=== PATIENT | female | born 1990 | race Two or more races ===

== ENCOUNTER 2017-02-23 18:32 | Emergency (ER) | payer SELFPAY ==
[~2017-02-23] VITALS: Ht 160 cm; Wt 90.7 kg
[2017-02-23] MEDS ORDERED: MECLIZINE HCL 12.5 MG TABLET. PO ONE (20:00)
[2017-02-23 20:03] LABS: BASO # 0.1 x10^3/uL (0.0-0.2); BASO % 1 % (0-3); EOS % 1 % (0-3); HEMATOCRIT 36.2 % (36.0-47.0); HEMOGLOBIN 11.8 g/dL (12.0-15.5); LYMPH # 2.4 x10^3/uL (1.0-4.8); LYMPH % 21 % (24-48); MEAN CORPUSCULAR HEMOGLOBIN 31 pg (25-35); MEAN CORPUSCULAR HGB CONC 33 g/dL (31-37); MEAN CORPUSCULAR VOLUME 94 fL (79-100); MONO % 9 % (0-9); NEUT % 70 % (31-73); PLATELET COUNT 224 x10^3/uL (140-400); RED BLOOD COUNT 3.85 x10^6/uL (3.50-5.40); RED CELL DISTRIBUTION WIDTH 13.3 % (11.5-14.5); WHITE BLOOD COUNT 11.7 x10^3/uL (4.0-11.0)
[2017-02-23 20:15] LABS: BILIRUBIN,URINE NEGATIVE (NEG); GLUCOSE,URINE NEGATIVE (NEG); NITRITE,URINE NEGATIVE (NEG); PH,URINE 5.5; PROTEIN,URINE NEGATIVE (NEG-TRACE); UROBILINOGEN,URINE 0.2 mg/dL (0.2 mg/dL)
[2017-02-23 20:22] LABS: BACTERIA,URINE FEW /HPF (0-FEW); RBC,URINE 0 /HPF (0-2); SQUAMOUS EPITHELIAL CELL,UR FEW /LPF; WBC,URINE OCC /HPF (0-4)
[2017-02-23 20:31] LABS: CALCIUM 9.2 mg/dL (8.5-10.1); CREATININE 0.6 mg/dL (0.6-1.0); GFR 120.8; POTASSIUM 3.8 mmol/L (3.5-5.1)
--- NOTE | 2017-02-23 20:32 | PHYS DOC ---
Past Medical History Past Medical History: No Pertinent History Past Surgical History: No Surgical History Alcohol Use: None Drug Use: None Adult General Chief Complaint Chief Complaint: HEADACHE HPI HPI 26-year-old female who states she's had worsening headache for the last week and specifically states when she deviates her gaze to the right she develops significant pain and has blurred vision. She states she normally never has headaches. She denies any recent illnesses. Her last menstrual period was at the beginning of December and she states she does sometimes have irregular menses and that this is not abnormal for her. Patient denies any fever or chills. She denies any nausea or vomiting. She does state her symptoms are somewhat worse when she moves and walks. She states she has been able to eat and drink without difficulty. She states she has been his times with 3 viable full-term pregnancies and one miscarriage in the first trimester. Review of Systems Review of Systems Constitutional: Denies fever or chills [] Eyes: Denies change in visual acuity, redness, or eye pain [] HENT: Denies nasal congestion or sore throat [] Respiratory: Denies cough or shortness of breath [] Cardiovascular: No additional information not addressed in HPI [] GI: Denies abdominal pain, nausea, vomiting, bloody stools or diarrhea [] : Denies dysuria or hematuria [] Musculoskeletal: Denies back pain or joint pain [] Integument: Denies rash or skin lesions [] Neurologic: Has headache, denies focal weakness or sensory changes [] Endocrine: Denies polyuria or polydipsia [] Current Medications Current Medications Current Medications Medications (Trade) Dose Ordered Sig/[facility] Start Time Stop Time Status Last Admin Dose Admin Acetaminophen (Tylenol) 650 mg 1X ONCE 02/23/17 21:30 02/23/17 21:31 DC Acetaminophen 650 mg 650 mg 1X ONCE 02/23/17 20:45 02/23/17 20:46 DC 02/23/17 22:13 650 MG Meclizine HCl (Antivert) 50 mg 1X ONCE 02/23/17 20:00 02/23/17 20:01 DC 02/23/17 20:04 50 MG Sodium Chloride (Iv Sodium Chloride 0.9% 1000ml Bag) 1,000 ml @ 1,000 mls/hr 1X ONCE 02/23/17 21:15 02/23/17 22:14 DC 02/23/17 22:14 1,000 MLS/HR Allergies Allergies Allergies Coded Allergies Type Severity Reaction Last Updated Verified No Known Drug Allergies 02/23/17 No Physical Exam Physical Exam Constitutional: Well developed, well nourished, no acute distress, non-toxic appearance. [] HENT: Normocephalic, atraumatic, bilateral external ears normal, oropharynx moist, no oral exudates, nose normal. [] Eyes: PERRLA, conjunctiva normal, no discharge, right horizontal nystagmus. [] Neck: Normal range of motion, no tenderness, supple, no stridor. [] Cardiovascular:Heart rate regular rhythm, no murmur [] Lungs & Thorax: Bilateral breath sounds clear to auscultation [] Abdomen: Bowel sounds normal, soft, no tenderness, no masses, no pulsatile masses. [] Skin: Warm, dry, no erythema, no rash. [] Back: No tenderness, no CVA tenderness. [] Extremities: No tenderness, no cyanosis, no clubbing, ROM intact, no edema. [] Neurologic: Alert and oriented X 3, normal motor function, normal sensory function, no focal deficits noted. [] Psychologic: Affect normal, judgement normal, mood normal. [] Current Patient Data Vital Signs Vital Signs Date Time Temp Pulse Resp B/P Pulse Ox O2 Delivery O2 Flow Rate FiO2 02/23/17 18:40 98.3 89 16 125/67 100 Room Air 98.3 Lab Values Laboratory Tests Test 02/23/17 19:10 02/23/17 19:22 02/23/17 19:52 POC Urine HCG, Qualitative Hcg positive (Negative) White Blood Count 11.7x10^3/uL (4.0-11.0) H Red Blood Count 3.85x10^6/uL (3.50-5.40) Hemoglobin 11.8g/dL (12.0-15.5) L Hematocrit 36.2% (36.0-47.0) Mean Corpuscular Volume 94fL (79-100) Mean Corpuscular Hemoglobin 31pg (25-35) Mean Corpuscular Hemoglobin Concent 33g/dL (31-37) Red Cell Distribution Width 13.3% (11.5-14.5) Platelet Count 224x10^3/uL (140-400) Neutrophils (%) (Auto) 70% (31-73) Lymphocytes (%) (Auto) 21% (24-48) L Monocytes (%) (Auto) 9% (0-9) Eosinophils (%) (Auto) 1% (0-3) Basophils (%) (Auto) 1% (0-3) Neutrophils # (Auto) 8.2x10^3uL (1.8-7.7) H Lymphocytes # (Auto) 2.4x10^3/uL (1.0-4.8) Monocytes # (Auto) 1.0x10^3/uL (0.0-1.1) Eosinophils # (Auto) 0.1x10^3/uL (0.0-0.7) Basophils # (Auto) 0.1x10^3/uL (0.0-0.2) Maternal Serum HCG Beta Subunit 77063bYN/mL (0-6) H Sodium Level 137mmol/L (136-145) Potassium Level 3.8mmol/L (3.5-5.1) Chloride Level 103mmol/L (98-107) Carbon Dioxide Level 24mmol/L (21-32) Anion Gap 10 (6-14) Blood Urea Nitrogen 9mg/dL (7-20) Creatinine 0.6mg/dL (0.6-1.0) Estimated GFR (Cockcroft-Gault) 120.8 Glucose Level 82mg/dL (70-99) Calcium Level 9.2mg/dL (8.5-10.1) Urine Collection Type Unknown Urine Color Yellow Urine Clarity Clear Urine pH 5.5 Urine Specific [place] <=1.005 Urine Protein Negativemg/dL (NEG-TRACE) Urine Glucose (UA) Negativemg/dL (NEG) Urine Ketones (Stick) Negativemg/dL (NEG) Urine Blood Negative (NEG) Urine Nitrite Negative (NEG) Urine Bilirubin Negative (NEG) Urine Urobilinogen Dipstick 0.2mg/dL (0.2 mg/dL) Urine Leukocyte Esterase Negative (NEG) Urine RBC 0/HPF (0-2) Urine WBC Occ/HPF (0-4) Urine Squamous Epithelial Cells Few/LPF Urine Bacteria Few/HPF (0-FEW) Laboratory Tests 02/23/17 19:22 Laboratory Tests 02/23/17 19:22 EKG EKG [] Radiology/Procedures Radiology/Procedures [] [facility] [address] [place] [address] IMAGING REPORT Signed PATIENT: EDI MALDONADO ACCOUNT: [id number] : 1990 LOCATION: ER AGE: 26 SEX: F EXAM STATUS: REG ER ORD. PHYSICIAN: BERNABE SIN DO REASON: MRV not MRA/RT SIDE HEADACHE, BLURRED VISION, DIZZY, X 1 WEEK, NO INJURY PROCEDURE: ANGIOGRAPHY BRAIN WO CONTRAST MR venogram Indication: RIGHT SIDED HEADACHES, BLURRED VISION, DIZZY, X 1 WEEK, PATIENT IS AND SIGNED RELEASE. Technique: Time of flight MR venogram was performed in both the sagittal and coronal planes. Maximum intensity pixel projections were obtained and presented in a rotating format. FINDINGS: There is no evidence of dural venous sinus thrombosis. The deep cerebral veins are within normal limits. No cortical vein thrombosis is identified. Incidentally noted is dominance of the transverse sinus. IMPRESSION: Unremarkable MR venogram of the head. No evidence of dural venous sinus thrombosis. Electronically signed by: Hosea Chavez (Feb 23, 2017 22:34:52) DICTATED and SIGNED BY: HOSEA CHAVEZ MD DATE: 02/23/172233 CC: BERNABE SIN DO; GORDO CASTILLO DO; UNKNOWN PCP NAME ~ Course & Med Decision Making Course & Med Decision Making Pertinent Labs and Imaging studies reviewed. (See chart for details) This 26-year-old female has a urine test that is positive. This was not known to the patient. Initially a CT of her head was ordered but this has been canceled. I discussed with the civil cad tech that I would like to image her brain to rule out any acute cause for her headache including cavernous venous thrombosis. Patient is given a dose of Tylenol and a fluid bolus. A MRV of the head will be administered to rule out any sinus thrombosis. Her care plan was discussed with Dr. Castillo, who agreed to follow-up the MRI result. If the MRI is normal, the patient will be discharged home to follow with her OB doctor for her developing . I assumed care of this patient at time of sign out from Dr. Sin. Patient is resting comfortably at this time, states she still having some residual right- sided head pain, denies any other complaints this time. She is agreeable with plan to receive the MRI as stated. She is also receiving IV fluids at this time. MRI of the brain obtained without issue. No evidence of concerning findings identified, no sinusitis thrombosis. I did discuss the signs with patient, who continues to rest comfortably with stable vital signs in the ED. She states that she still has minor head pain at this time, but is improved after receiving Tylenol IV fluids. Orthostatics were obtained, patient's blood pressures 1 teens over 50s to 60s, with heart rates in the 70s to 80s, without any dizziness, lightheadedness or other concerning findings. Patient was ambulatory in the ED, her trial progressed without issue, patient denies any complaints. After lengthy discussion, patient to be discharged home, to follow- up with neurology for additional evaluation if symptoms persist, return to the ED if any concerning symptoms develop, to follow-up with her [facility] for expected management, and with Dr. Noble of [facility] if she is unable to follow-up with her previous mesh man. Patient was given a prescription for vitamins, and also instructions on staying well-hydrated and dietary recommendations. Patient voiced understanding and agreement with plan as stated , discharged home in stable condition with plan as above. Dragon Disclaimer Dragon Disclaimer This electronic medical record was generated, in whole or in part, using a voice recognition dictation system. Departure Impression: Primary Impression: Head ache Additional Impression: Disposition: HOME, SELF-CARE Condition: IMPROVED Referrals: UNKNOWN PCP NAME (PCP) Scripts Vits W-Ca,Fe,Fa(<1MG) ( Vitamins)1 Each Tablet1 Each PO DAILY # 30 Prov:BERNABE SIN DO 02/23/17 Departure Departure Impression: Primary Impression: Head ache Additional Impression: Disposition: HOME, SELF-CARE Condition: IMPROVED Referrals: UNKNOWN PCP NAME (PCP) Scripts Vits W-Ca,Fe,Fa(<1MG) ( Vitamins)1 Each Tablet1 Each PO DAILY # 30 Prov:BERNABE SIN DO 02/23/17 Problem Qualifiers BERNABE SIN DO Feb 23, 2017 20:32 GORDO CASTILLO DO Feb 23, 2017 23:43
[2017-02-23] MEDS ORDERED: ACETAMINOPHEN 325 MG TABLET. PO ONE ×3 (20:45→21:30)
[2017-02-23] MEDS ORDERED: IV NORMAL SALINE 1000ML BAG 1,000 ML IV ONE (21:15)
[2017-02-23] MEDS ORDERED: PREN1TAB58 PO (21:18)
--- NOTE | 2017-02-23 22:36 | RAD ---
MR venogram Indication: RIGHT SIDED HEADACHES, BLURRED VISION, DIZZY, X 1 WEEK, PATIENT IS AND SIGNED RELEASE. Technique: Time of flight MR venogram was performed in both the sagittal and coronal planes. Maximum intensity pixel projections were obtained and presented in a rotating format. FINDINGS: There is no evidence of dural venous sinus thrombosis. The deep cerebral veins are within normal limits. No cortical vein thrombosis is identified. Incidentally noted is dominance of the transverse sinus. IMPRESSION: Unremarkable MR venogram of the head. No evidence of dural venous sinus thrombosis. Electronically signed by: Hosea Chavez (Feb 23, 2017 22:34:52)
[2017-02-23 23:00] VITALS: BP 117/64
== END 2017-02-23 23:57 | disposition home or self-care (01) ==
LOC: ER 18:32
DX: Z33.1 Pregnant state, incidental (principal); R51 Headache; R42 Dizziness and giddiness; H53.8 Other visual disturbances
CPT/HCPCS: 36415; 70544; 80048; 81001; 81025; 84702; 85027; 96360; 96361; 99285; J7030; J8597

== ENCOUNTER 2017-06-03 22:37 | Observation (INO) | payer SELFPAY ==
[~2017-06-03 22:37] MED LIST: PREN1TAB58 PO
== END 2017-06-03 23:00 ==
LOC: 3 SO LND 22:37
PROVIDERS: ADMIT Obstetrics & Gynecology; ATTEND Obstetrics & Gynecology
DX: O26.892 Other specified pregnancy related conditions, second trimester (principal); R10.9 Unspecified abdominal pain; R11.2 Nausea with vomiting, unspecified; Z3A.20 20 weeks gestation of pregnancy
CPT/HCPCS: G0378; G0379

== ENCOUNTER 2017-06-03 22:59 | Inpatient (IN) | payer SELFPAY ==
[~2017-06-03] VITALS: Ht 160 cm; Wt 93.4 kg
[2017-06-03 23:24] LABS: BASO % 0 % (0-3); EOS % 0 % (0-3); HEMATOCRIT 32.5 % (36.0-47.0); HEMOGLOBIN 10.9 g/dL (12.0-15.5); LYMPH # 1.3 x10^3/uL (1.0-4.8); LYMPH % 10 % (24-48); MEAN CORPUSCULAR HEMOGLOBIN 31 pg (25-35); MEAN CORPUSCULAR HGB CONC 33 g/dL (31-37); MEAN CORPUSCULAR VOLUME 93 fL (79-100); MONO % 6 % (0-9); NEUT % 84 % (31-73); PLATELET COUNT 187 x10^3/uL (140-400); RED BLOOD COUNT 3.51 x10^6/uL (3.50-5.40); RED CELL DISTRIBUTION WIDTH 13.1 % (11.5-14.5)
[2017-06-03] MEDS ORDERED: METOCLOPRAMIDE HCL 10 MG/2 ML VIAL. IV ONE (23:30)
[2017-06-03] MEDS: fentaNYL PF VIAL 100 MCG/2 ML VIAL IV PRN (23:30)
[2017-06-03] MEDS ORDERED: IV NORMAL SALINE 1000ML BAG 1,000 ML IV ONE (23:30)
[2017-06-04 00:08] LABS: CALCIUM 8.4 mg/dL (8.5-10.1); CREATININE 0.7 mg/dL (0.6-1.0); GFR 100.4; POTASSIUM 3.6 mmol/L (3.5-5.1)
[2017-06-04 00:14] LABS: ALBUMIN/GLOBULIN RATIO 0.7 (1.0-1.7); TOTAL BILIRUBIN 0.3 mg/dL (0.2-1.0); TOTAL PROTEIN 7.1 g/dL (6.4-8.2)
--- NOTE | 2017-06-04 00:41 | RAD ---
Ultrasound of the abdomen 06/03/2017 CLINICAL HISTORY: Left flank pain for one day. The patient is 20 weeks . TECHNIQUE: A real-time ultrasound examination of the abdomen was performed. Multiple images were obtained. FINDINGS: The gallbladder is well-distended. No gallstones are visualized. The gallbladder wall thickness is within normal limits. No pericholecystic fluid is seen. The common bile duct measures 3 mm in diameter which is within normal limits. The liver is normal in size measuring 16.5 cm in length. No focal abnormality of the liver is seen. The pancreas is not well-visualized due to overlying bowel gas. The spleen and right kidney are within normal limits. The left kidney is mildly enlarged. Mild left hydronephrosis is noted. The proximal left ureter is mildly dilated. An echogenic focus is seen within the proximal left ureter which is suspicious for a left ureteral calculus. This measures approximately 4 mm in size. The abdominal aorta tapers normally. Inferior vena cava is within normal limits. No free fluid is seen. IMPRESSION: Mild left hydronephrosis and proximal left hydroureter. A 4 mm echogenic focus is seen in the region of the proximal left ureter which is suspicious for a left ureteral calculus. Electronically signed by: Waylon Champagne MD (06/04/2017 12:37 AM) [facility]
[2017-06-04] MEDS: fentaNYL PF VIAL 100 MCG/2 ML VIAL IV PRN ×2 (00:43→01:26)
[2017-06-04 00:47] LABS: BILIRUBIN,URINE NEGATIVE (NEG); GLUCOSE,URINE NEGATIVE (NEG); NITRITE,URINE NEGATIVE (NEG); PH,URINE 7.5; PROTEIN,URINE NEGATIVE (NEG-TRACE)
[2017-06-04 00:53] LABS: BACTERIA,URINE FEW /HPF (0-FEW); RBC,URINE OCC /HPF (0-2); SQUAMOUS EPITHELIAL CELL,UR FEW /LPF; WBC,URINE OCC /HPF (0-4)
[2017-06-04] MEDS ORDERED: MORPHINE SULFATE 4 MG/ML DISP.SYRIN. IV PRN (01:15)
[2017-06-04] MEDS ORDERED: IV NORMAL SALINE 1000ML BAG 1,000 ML IV SCH (01:27)
[2017-06-04] MEDS ORDERED: ACETAMINOPHEN 325 MG TABLET. PO PRN (01:30)
[2017-06-04] MEDS ORDERED: fentaNYL PF VIAL 100 MCG/2 ML VIAL IV PRN (01:30)
[2017-06-04] MEDS ORDERED: ONDANSETRON PF 4 MG/2 ML VIAL. IV PRN (01:30)
[2017-06-04 02:00] VITALS: BP 115/64
[2017-06-04] MEDS: IV RINGERS,LACTATED 1000ML 1,000 ML IV SCH ×4 (02:09→22:25)
[2017-06-04] MEDS: ONDANSETRON PF 4 MG/2 ML VIAL. IV SCH ×3 (02:09→12:00)
--- NOTE | 2017-06-04 03:42 | PHYS DOC ---
Past Medical History Past Medical History: No Pertinent History Past Surgical History: No Surgical History Alcohol Use: None Drug Use: None Adult General Chief Complaint Chief Complaint: NAUSEA/VOMITING/DIARRHA HPI HPI Patient is a 27 year old female who presents with flank pain. The patient reports 2 day history of left flank pain radiating to left groin. She reports nausea & vomiting. She denies fevers/chills, diarrhea, dysuria, hematuria, vaginal bleeding, discharge. She reports constipation. She denies previous history of similar pain. She is 20 weeks , screened by OB with normal heart tones. She has been receiving care by Dr. Chapman at [facility]. Review of Systems Review of Systems Constitutional: Denies fever or chills Eyes: Denies change in visual acuity HENT: Denies nasal congestion or sore throat Respiratory: Denies cough or shortness of breath Cardiovascular: Denies chest pain or edema GI: Reports abdominal pain, nausea, vomiting, denies bloody stools or diarrhea : Denies dysuria or hematuria Musculoskeletal: Reports flank pain Integument: Denies rash or skin lesions Neurologic: Denies headache, focal weakness or sensory changes Current Medications Current Medications Current Medications Medications (Trade) Dose Ordered Sig/Jhonathan Start Time Stop Time Status Last Admin Dose Admin Fentanyl Citrate (Fentanyl 2ml Vial) 50 mcg PRN Q15MIN PRN 06/03/17 23:15 06/04/17 23:14 06/04/17 01:26 50 MCG Metoclopramide HCl (Reglan) 10 mg 1X ONCE 06/03/17 23:30 06/03/17 23:31 DC 06/03/17 23:29 10 MG Sodium Chloride 1,000 ml @ 1,000 mls/hr 1X ONCE 06/03/17 23:30 06/04/17 00:29 DC 06/03/17 23:21 1,000 MLS/HR Allergies Allergies Allergies Coded Allergies Type Severity Reaction Last Updated Verified No Known Drug Allergies 02/23/17 No Physical Exam Physical Exam Constitutional: obese, no acute distress, non-toxic appearance. HENT: Normocephalic, atraumatic, bilateral external ears normal, oropharynx moist, nose normal. Eyes: conjunctiva normal, no discharge. Neck: supple, no stridor. Cardiovascular: RRR, no murmurs, no edema. Lungs & Thorax: LCTAB, no wheezing, no respiratory distress. Abdomen: soft, nontender, nondistended. gravid uterus. no focal tenderness, no masses. Skin: Warm, dry, no erythema, no rash. Back: left CVA tenderness. Extremities: No tenderness, no edema. Neurologic: Alert and oriented X 3, no focal deficits noted. Psychologic: Affect normal, judgement normal, mood normal. Current Patient Data Vital Signs Vital Signs Date Time Temp Pulse Resp B/P (MAP) Pulse Ox O2 Delivery O2 Flow Rate FiO2 06/04/17 00:43 20 06/03/17 23:35 80 113/54 (73) 96 Room Air 06/03/17 23:03 97.9 97.9 Lab Values Laboratory Tests Test 06/03/17 23:10 06/04/17 00:23 White Blood Count 14.0 x10^3/uL (4.0-11.0) H Red Blood Count 3.51 x10^6/uL (3.50-5.40) Hemoglobin 10.9 g/dL (12.0-15.5) L Hematocrit 32.5 % (36.0-47.0) L Mean Corpuscular Volume 93 fL (79-100) Mean Corpuscular Hemoglobin 31 pg (25-35) Mean Corpuscular Hemoglobin Concent 33 g/dL (31-37) Red Cell Distribution Width 13.1 % (11.5-14.5) Platelet Count 187 x10^3/uL (140-400) Neutrophils (%) (Auto) 84 % (31-73) H Lymphocytes (%) (Auto) 10 % (24-48) L Monocytes (%) (Auto) 6 % (0-9) Eosinophils (%) (Auto) 0 % (0-3) Basophils (%) (Auto) 0 % (0-3) Neutrophils # (Auto) 11.8 x10^3uL (1.8-7.7) H Lymphocytes # (Auto) 1.3 x10^3/uL (1.0-4.8) Monocytes # (Auto) 0.9 x10^3/uL (0.0-1.1) Eosinophils # (Auto) 0.0 x10^3/uL (0.0-0.7) Basophils # (Auto) 0.0 x10^3/uL (0.0-0.2) Sodium Level 142 mmol/L (136-145) Potassium Level 3.6 mmol/L (3.5-5.1) Chloride Level 107 mmol/L (98-107) Carbon Dioxide Level 22 mmol/L (21-32) Anion Gap 13 (6-14) Blood Urea Nitrogen 6 mg/dL (7-20) L Creatinine 0.7 mg/dL (0.6-1.0) Estimated GFR (Cockcroft-Gault) 100.4 BUN/Creatinine Ratio 9 (6-20) Glucose Level 103 mg/dL (70-99) H Calcium Level 8.4 mg/dL (8.5-10.1) L Total Bilirubin 0.3 mg/dL (0.2-1.0) Aspartate Amino Transferase (AST) 21 U/L (15-37) Alanine Aminotransferase (ALT) 24 U/L (14-59) Alkaline Phosphatase 107 U/L (46-116) Total Protein 7.1 g/dL (6.4-8.2) Albumin 3.0 g/dL (3.4-5.0) L Albumin/Globulin Ratio 0.7 (1.0-1.7) L Lipase 138 U/L (73-393) Urine Collection Type Unknown Urine Color Yellow Urine Clarity Cloudy Urine pH 7.5 Urine Specific [place] 1.020 Urine Protein Negative mg/dL (NEG-TRACE) Urine Glucose (UA) Negative mg/dL (NEG) Urine Ketones (Stick) 15 mg/dL (NEG) Urine Blood Negative (NEG) Urine Nitrite Negative (NEG) Urine Bilirubin Negative (NEG) Urine Urobilinogen Dipstick 1.0 mg/dL (0.2 mg/dL) Urine Leukocyte Esterase Negative (NEG) Urine RBC Occ /HPF (0-2) Urine WBC Occ /HPF (0-4) Urine Squamous Epithelial Cells Few /LPF Urine Amorphous Sediment Present /HPF Urine Bacteria Few /HPF (0-FEW) Urine Mucus Slight /LPF Laboratory Tests 06/03/17 23:10 Laboratory Tests 06/03/17 23:10 EKG EKG [] Radiology/Procedures Radiology/Procedures PROCEDURE: ABDOMEN COMPLETE Ultrasound of the abdomen 06/03/2017 CLINICAL HISTORY: Left flank pain for one day. The patient is 20 weeks . TECHNIQUE: A real-time ultrasound examination of the abdomen was performed. Multiple images were obtained. FINDINGS: The gallbladder is well-distended. No gallstones are visualized. The gallbladder wall thickness is within normal limits. No pericholecystic fluid is seen. The common bile duct measures 3 mm in diameter which is within normal limits. The liver is normal in size measuring 16.5 cm in length. No focal abnormality of the liver is seen. The pancreas is not well-visualized due to overlying bowel gas. The spleen and right kidney are within normal limits. The left kidney is mildly enlarged. Mild left hydronephrosis is noted. The proximal left ureter is mildly dilated. An echogenic focus is seen within the proximal left ureter which is suspicious for a left ureteral calculus. This measures approximately 4 mm in size. The abdominal aorta tapers normally. Inferior vena cava is within normal limits. No free fluid is seen. IMPRESSION: Mild left hydronephrosis and proximal left hydroureter. A 4 mm echogenic focus is seen in the region of the proximal left ureter which is suspicious for a left ureteral calculus. Electronically signed by: Waylon Champagne MD (06/04/2017 12:37 AM) [facility] DICTATED and SIGNED BY: WAYLON CHAMPAGNE MD DATE: 06/04/17 0032 [] Course & Med Decision Making Course & Med Decision Making Pertinent Labs and Imaging studies reviewed. (See chart for details) The patient presents with flank pain. Obtained ultrasound which shows ureteral stone with hydronephrosis and hydroureter. White blood cell count is 14 but no infection on UA. Her pain improved but remained severe. She received IV fluids and antiemetics here. Recommended admission to the hospital for further evaluation and treatment. The patient agreed with plan of care. Discussed with Dr. Martinez who agreed to admit to the OB floor to inpatient status, urology consult to Dr. Gorman. The patient is being admitted in stable condition. [] Dragon Disclaimer Dragon Disclaimer This electronic medical record was generated, in whole or in part, using a voice recognition dictation system. Departure Departure Impression: Primary Impression: Ureteral colic Additional Impression: with hydronephrosis in second trimester Disposition: ADMITTED INPATIENT Condition: STABLE Problem Qualifiers MINERVA GILMAN MD Jun 04, 2017 03:42
[2017-06-04 05:29] VITALS: BP 88/44
[2017-06-04] MEDS: HYDROcodone/APAP 5/325MG 1 TAB TABLET PO PRN ×3 (07:48→21:19)
--- NOTE | 2017-06-04 08:56 | PDOC ---
PROGRESS NOTES Subjective Subjective Pt. with left flank pain Objective Objective Vital Signs Date Time Temp Pulse Resp B/P (MAP) Pulse Ox O2 Delivery O2 Flow Rate FiO2 06/04/17 05:29 98.2 88 18 88/44 (59) 97 Room Air 98.2 Intake and Output 06/04/17 07:00 Output Total 950 ml Balance -950 ml Output Urine Total 950 ml Physical Exam Physical Exam Pt. with probable 4 mm left ureteral stone Plan Plan of Care I discussed with the pt. the options, alternatives, benefits, risks and possible complications of medical expulsive therapy vs. surgical intervention with the pt. Pt. currently feeling better and would like to do medical expulsive therapy. Will proceed accordingly. Problems Medical Problems: (1) with hydronephrosis in second trimester Status: Acute (2) Ureteral colic Status: Acute Comment Review of Relevant I have reviewed the following items juan (where applicable) has been applied. Labs Laboratory Tests Test 06/03/17 23:10 06/04/17 00:23 White Blood Count 14.0 x10^3/uL (4.0-11.0) Red Blood Count 3.51 x10^6/uL (3.50-5.40) Hemoglobin 10.9 g/dL (12.0-15.5) Hematocrit 32.5 % (36.0-47.0) Mean Corpuscular Volume 93 fL (79-100) Mean Corpuscular Hemoglobin 31 pg (25-35) Mean Corpuscular Hemoglobin Concent 33 g/dL (31-37) Red Cell Distribution Width 13.1 % (11.5-14.5) Platelet Count 187 x10^3/uL (140-400) Neutrophils (%) (Auto) 84 % (31-73) Lymphocytes (%) (Auto) 10 % (24-48) Monocytes (%) (Auto) 6 % (0-9) Eosinophils (%) (Auto) 0 % (0-3) Basophils (%) (Auto) 0 % (0-3) Neutrophils # (Auto) 11.8 x10^3uL (1.8-7.7) Lymphocytes # (Auto) 1.3 x10^3/uL (1.0-4.8) Monocytes # (Auto) 0.9 x10^3/uL (0.0-1.1) Eosinophils # (Auto) 0.0 x10^3/uL (0.0-0.7) Basophils # (Auto) 0.0 x10^3/uL (0.0-0.2) Sodium Level 142 mmol/L (136-145) Potassium Level 3.6 mmol/L (3.5-5.1) Chloride Level 107 mmol/L (98-107) Carbon Dioxide Level 22 mmol/L (21-32) Anion Gap 13 (6-14) Blood Urea Nitrogen 6 mg/dL (7-20) Creatinine 0.7 mg/dL (0.6-1.0) Estimated GFR (Cockcroft-Gault) 100.4 BUN/Creatinine Ratio 9 (6-20) Glucose Level 103 mg/dL (70-99) Calcium Level 8.4 mg/dL (8.5-10.1) Total Bilirubin 0.3 mg/dL (0.2-1.0) Aspartate Amino Transf (AST/SGOT) 21 U/L (15-37) Alanine Aminotransferase (ALT/SGPT) 24 U/L (14-59) Alkaline Phosphatase 107 U/L (46-116) Total Protein 7.1 g/dL (6.4-8.2) Albumin 3.0 g/dL (3.4-5.0) Albumin/Globulin Ratio 0.7 (1.0-1.7) Lipase 138 U/L (73-393) Urine Collection Type Unknown Urine Color Yellow Urine Clarity Cloudy Urine pH 7.5 Urine Specific [place] 1.020 Urine Protein Negative mg/dL (NEG-TRACE) Urine Glucose (UA) Negative mg/dL (NEG) Urine Ketones (Stick) 15 mg/dL (NEG) Urine Blood Negative (NEG) Urine Nitrite Negative (NEG) Urine Bilirubin Negative (NEG) Urine Urobilinogen Dipstick 1.0 mg/dL (0.2 mg/dL) Urine Leukocyte Esterase Negative (NEG) Urine RBC Occ /HPF (0-2) Urine WBC Occ /HPF (0-4) Urine Squamous Epithelial Cells Few /LPF Urine Amorphous Sediment Present /HPF Urine Bacteria Few /HPF (0-FEW) Urine Mucus Slight /LPF Laboratory Tests Test 06/03/17 23:10 06/04/17 00:23 White Blood Count 14.0 x10^3/uL (4.0-11.0) Red Blood Count 3.51 x10^6/uL (3.50-5.40) Hemoglobin 10.9 g/dL (12.0-15.5) Hematocrit 32.5 % (36.0-47.0) Mean Corpuscular Volume 93 fL (79-100) Mean Corpuscular Hemoglobin 31 pg (25-35) Mean Corpuscular Hemoglobin Concent 33 g/dL (31-37) Red Cell Distribution Width 13.1 % (11.5-14.5) Platelet Count 187 x10^3/uL (140-400) Neutrophils (%) (Auto) 84 % (31-73) Lymphocytes (%) (Auto) 10 % (24-48) Monocytes (%) (Auto) 6 % (0-9) Eosinophils (%) (Auto) 0 % (0-3) Basophils (%) (Auto) 0 % (0-3) Neutrophils # (Auto) 11.8 x10^3uL (1.8-7.7) Lymphocytes # (Auto) 1.3 x10^3/uL (1.0-4.8) Monocytes # (Auto) 0.9 x10^3/uL (0.0-1.1) Eosinophils # (Auto) 0.0 x10^3/uL (0.0-0.7) Basophils # (Auto) 0.0 x10^3/uL (0.0-0.2) Sodium Level 142 mmol/L (136-145) Potassium Level 3.6 mmol/L (3.5-5.1) Chloride Level 107 mmol/L (98-107) Carbon Dioxide Level 22 mmol/L (21-32) Anion Gap 13 (6-14) Blood Urea Nitrogen 6 mg/dL (7-20) Creatinine 0.7 mg/dL (0.6-1.0) Estimated GFR (Cockcroft-Gault) 100.4 BUN/Creatinine Ratio 9 (6-20) Glucose Level 103 mg/dL (70-99) Calcium Level 8.4 mg/dL (8.5-10.1) Total Bilirubin 0.3 mg/dL (0.2-1.0) Aspartate Amino Transf (AST/SGOT) 21 U/L (15-37) Alanine Aminotransferase (ALT/SGPT) 24 U/L (14-59) Alkaline Phosphatase 107 U/L (46-116) Total Protein 7.1 g/dL (6.4-8.2) Albumin 3.0 g/dL (3.4-5.0) Albumin/Globulin Ratio 0.7 (1.0-1.7) Lipase 138 U/L (73-393) Urine Collection Type Unknown Urine Color Yellow Urine Clarity Cloudy Urine pH 7.5 Urine Specific [place] 1.020 Urine Protein Negative mg/dL (NEG-TRACE) Urine Glucose (UA) Negative mg/dL (NEG) Urine Ketones (Stick) 15 mg/dL (NEG) Urine Blood Negative (NEG) Urine Nitrite Negative (NEG) Urine Bilirubin Negative (NEG) Urine Urobilinogen Dipstick 1.0 mg/dL (0.2 mg/dL) Urine Leukocyte Esterase Negative (NEG) Urine RBC Occ /HPF (0-2) Urine WBC Occ /HPF (0-4) Urine Squamous Epithelial Cells Few /LPF Urine Amorphous Sediment Present /HPF Urine Bacteria Few /HPF (0-FEW) Urine Mucus Slight /LPF Medications Current Medications Sodium Chloride 1,000 ml @ 1,000 mls/hr 1X ONCE IV Last administered on 23:21; Start 06/03/17 at 23:30; Stop 06/04/17 at 00:29; Status DC Metoclopramide HCl (Reglan) 10 mg 1X ONCE IV Last administered on 06/03/17 23: 29; Start 06/03/17 at 23:30; Stop 06/03/17 at 23:31; Status DC Fentanyl Citrate (Fentanyl 2ml Vial) 50 mcg PRN Q15MIN PRN IV PAIN GREATER THAN 3/10 Last administered on 06/04/17 01:26; Start 06/03/17 at 23:15; Stop 06/04 at 23:14 Ringer's Solution 1,000 ml @ 175 mls/hr Q5H43M IV Last administered on 02:09; Start 06/04/17 at 01:15 Acetaminophen/ Hydrocodone Bitart (Lortab 5/325) 2 tab PRN Q6HRS PRN PO SEVERE PAIN Last administered on 06/04/17 07:48; Start 06/04/17 at 01:15 Ondansetron HCl (Zofran) 8 mg Q6HRS IV Last administered on 06/04/17 07:47; Start 06/04/17 at 01:15 Morphine Sulfate 5 mg PRN Q2HR PRN IV SEVERE PAIN Last administered on 02:08; Start 06/04/17 at 01:15 Ondansetron HCl (Zofran) 4 mg PRN Q8HRS PRN IV NAUSEA/VOMITING; Start 06/04/17 at 01:30; Stop 06/05/17 at 01:29; Status UNV Fentanyl Citrate (Fentanyl 2ml Vial) 50 mcg PRN Q1HR PRN IV PAIN; Start at 01:30; Stop 06/05/17 at 01:29; Status UNV Sodium Chloride 1,000 ml @ 125 mls/hr Q8H IV ; Start 06/04/17 at 01:27; Stop 06/05/17 at 01:26 Acetaminophen (Tylenol) 650 mg PRN Q4HRS PRN PO FEVER; Start 06/04/17 at 01:30; Stop 06/05/17 at 01:29 Active Scripts Active Vitamins ( Vits W-Ca,Fe,Fa(<1MG)) 1 Each Tablet 1 Each PO DAILY Vitals/I & O Vital Sign - Last 24 Hours 06/03/17 06/03/17 06/04/17 06/04/17 23:03 23:35 00:43 01:20 Temp 97.9 97.9 Pulse 86 80 90 Resp 20 20 20 20 B/P (MAP) 118/63 (81) 113/54 (73) 109/65 (80) Pulse Ox 98 96 99 O2 Delivery Room Air Room Air Room Air 06/04/17 06/04/17 06/04/17 02:00 02:08 05:29 Temp 98.2 98.2 98.2 98.2 Pulse 85 88 Resp 20 24 18 B/P (MAP) 115/64 (81) 88/44 (59) Pulse Ox 96 98 97 O2 Delivery Room Air Room Air Room Air Intake and Output 06/03/17 06/03/17 06/04/17 15:00 23:00 07:00 Output Total 950 ml Balance -950 ml ADOLFO WHELAN MD Jun 04, 2017 08:56
--- NOTE | 2017-06-04 09:09 | PDOC2 ---
UROLOGY CONSULT Date of Admission DATE: 06/04/17 TIME: 09:06 ROS ROS: RESPIRATORY: Shortness of breath denies. Cough denies. UROLOGY: Denies blood in urine. Denies difficulty urinating Current Medications Current Medications Sodium Chloride 1,000 ml @ 1,000 mls/hr 1X ONCE IV Last administered on 23:21; Start 06/03/17 at 23:30; Stop 06/04/17 at 00:29; Status DC Metoclopramide HCl (Reglan) 10 mg 1X ONCE IV Last administered on 06/03/17 23: 29; Start 06/03/17 at 23:30; Stop 06/03/17 at 23:31; Status DC Fentanyl Citrate (Fentanyl 2ml Vial) 50 mcg PRN Q15MIN PRN IV PAIN GREATER THAN 3/10 Last administered on 06/04/17 01:26; Start 06/03/17 at 23:15; Stop 06/04 at 23:14 Ringer's Solution 1,000 ml @ 175 mls/hr Q5H43M IV Last administered on 02:09; Start 06/04/17 at 01:15 Acetaminophen/ Hydrocodone Bitart (Lortab 5/325) 2 tab PRN Q6HRS PRN PO SEVERE PAIN Last administered on 06/04/17 07:48; Start 06/04/17 at 01:15 Ondansetron HCl (Zofran) 8 mg Q6HRS IV Last administered on 06/04/17 07:47; Start 06/04/17 at 01:15 Morphine Sulfate 5 mg PRN Q2HR PRN IV SEVERE PAIN Last administered on 02:08; Start 06/04/17 at 01:15 Ondansetron HCl (Zofran) 4 mg PRN Q8HRS PRN IV NAUSEA/VOMITING; Start 06/04/17 at 01:30; Stop 06/05/17 at 01:29; Status UNV Fentanyl Citrate (Fentanyl 2ml Vial) 50 mcg PRN Q1HR PRN IV PAIN; Start at 01:30; Stop 06/05/17 at 01:29; Status UNV Sodium Chloride 1,000 ml @ 125 mls/hr Q8H IV ; Start 06/04/17 at 01:27; Stop 06/05/17 at 01:26 Acetaminophen (Tylenol) 650 mg PRN Q4HRS PRN PO FEVER; Start 06/04/17 at 01:30; Stop 06/05/17 at 01:29 Ceftriaxone Sodium 1 gm/ Sodium Chloride 50 ml @ 100 mls/hr Q24H IV ; Start 06/04/17 at 09:00 Tamsulosin HCl (Flomax) 0.4 mg DAILY PO ; Start 06/04/17 at 09:00 Active Scripts Active Vitamins ( Vits W-Ca,Fe,Fa(<1MG)) 1 Each Tablet 1 Each PO DAILY Allergies: Coded Allergies: No Known Drug Allergies (Unverified , 02/23/17) Physical Examination PHYSICAL EXAMINATION: GENERAL: Gen. appearance: No acute distress. Mood/affect: Pleasant. HEENT: Head: Normocephalic, atraumatic. Airway Impairment: No. CHEST: Shape and expansion: Normal. Expansion: Normal. SKIN: General: Warm. Color: Good. GENITOURINARY:External genitalia - wnl. NEUROLOGICAL: Mental status: Alert and oriented 3. Language: Normal. VITALS Vital Signs Date Time Temp Pulse Resp B/P (MAP) Pulse Ox O2 Delivery O2 Flow Rate FiO2 06/04/17 05:29 98.2 88 18 88/44 (59) 97 Room Air 98.2 Labs Laboratory Tests Test 06/03/17 23:10 06/04/17 00:23 White Blood Count 14.0 x10^3/uL (4.0-11.0) Red Blood Count 3.51 x10^6/uL (3.50-5.40) Hemoglobin 10.9 g/dL (12.0-15.5) Hematocrit 32.5 % (36.0-47.0) Mean Corpuscular Volume 93 fL (79-100) Mean Corpuscular Hemoglobin 31 pg (25-35) Mean Corpuscular Hemoglobin Concent 33 g/dL (31-37) Red Cell Distribution Width 13.1 % (11.5-14.5) Platelet Count 187 x10^3/uL (140-400) Neutrophils (%) (Auto) 84 % (31-73) Lymphocytes (%) (Auto) 10 % (24-48) Monocytes (%) (Auto) 6 % (0-9) Eosinophils (%) (Auto) 0 % (0-3) Basophils (%) (Auto) 0 % (0-3) Neutrophils # (Auto) 11.8 x10^3uL (1.8-7.7) Lymphocytes # (Auto) 1.3 x10^3/uL (1.0-4.8) Monocytes # (Auto) 0.9 x10^3/uL (0.0-1.1) Eosinophils # (Auto) 0.0 x10^3/uL (0.0-0.7) Basophils # (Auto) 0.0 x10^3/uL (0.0-0.2) Sodium Level 142 mmol/L (136-145) Potassium Level 3.6 mmol/L (3.5-5.1) Chloride Level 107 mmol/L (98-107) Carbon Dioxide Level 22 mmol/L (21-32) Anion Gap 13 (6-14) Blood Urea Nitrogen 6 mg/dL (7-20) Creatinine 0.7 mg/dL (0.6-1.0) Estimated GFR (Cockcroft-Gault) 100.4 BUN/Creatinine Ratio 9 (6-20) Glucose Level 103 mg/dL (70-99) Calcium Level 8.4 mg/dL (8.5-10.1) Total Bilirubin 0.3 mg/dL (0.2-1.0) Aspartate Amino Transf (AST/SGOT) 21 U/L (15-37) Alanine Aminotransferase (ALT/SGPT) 24 U/L (14-59) Alkaline Phosphatase 107 U/L (46-116) Total Protein 7.1 g/dL (6.4-8.2) Albumin 3.0 g/dL (3.4-5.0) Albumin/Globulin Ratio 0.7 (1.0-1.7) Lipase 138 U/L (73-393) Urine Collection Type Unknown Urine Color Yellow Urine Clarity Cloudy Urine pH 7.5 Urine Specific [place] 1.020 Urine Protein Negative mg/dL (NEG-TRACE) Urine Glucose (UA) Negative mg/dL (NEG) Urine Ketones (Stick) 15 mg/dL (NEG) Urine Blood Negative (NEG) Urine Nitrite Negative (NEG) Urine Bilirubin Negative (NEG) Urine Urobilinogen Dipstick 1.0 mg/dL (0.2 mg/dL) Urine Leukocyte Esterase Negative (NEG) Urine RBC Occ /HPF (0-2) Urine WBC Occ /HPF (0-4) Urine Squamous Epithelial Cells Few /LPF Urine Amorphous Sediment Present /HPF Urine Bacteria Few /HPF (0-FEW) Urine Mucus Slight /LPF Laboratory Tests Test 06/03/17 23:10 06/04/17 00:23 White Blood Count 14.0 x10^3/uL (4.0-11.0) Red Blood Count 3.51 x10^6/uL (3.50-5.40) Hemoglobin 10.9 g/dL (12.0-15.5) Hematocrit 32.5 % (36.0-47.0) Mean Corpuscular Volume 93 fL (79-100) Mean Corpuscular Hemoglobin 31 pg (25-35) Mean Corpuscular Hemoglobin Concent 33 g/dL (31-37) Red Cell Distribution Width 13.1 % (11.5-14.5) Platelet Count 187 x10^3/uL (140-400) Neutrophils (%) (Auto) 84 % (31-73) Lymphocytes (%) (Auto) 10 % (24-48) Monocytes (%) (Auto) 6 % (0-9) Eosinophils (%) (Auto) 0 % (0-3) Basophils (%) (Auto) 0 % (0-3) Neutrophils # (Auto) 11.8 x10^3uL (1.8-7.7) Lymphocytes # (Auto) 1.3 x10^3/uL (1.0-4.8) Monocytes # (Auto) 0.9 x10^3/uL (0.0-1.1) Eosinophils # (Auto) 0.0 x10^3/uL (0.0-0.7) Basophils # (Auto) 0.0 x10^3/uL (0.0-0.2) Sodium Level 142 mmol/L (136-145) Potassium Level 3.6 mmol/L (3.5-5.1) Chloride Level 107 mmol/L (98-107) Carbon Dioxide Level 22 mmol/L (21-32) Anion Gap 13 (6-14) Blood Urea Nitrogen 6 mg/dL (7-20) Creatinine 0.7 mg/dL (0.6-1.0) Estimated GFR (Cockcroft-Gault) 100.4 BUN/Creatinine Ratio 9 (6-20) Glucose Level 103 mg/dL (70-99) Calcium Level 8.4 mg/dL (8.5-10.1) Total Bilirubin 0.3 mg/dL (0.2-1.0) Aspartate Amino Transf (AST/SGOT) 21 U/L (15-37) Alanine Aminotransferase (ALT/SGPT) 24 U/L (14-59) Alkaline Phosphatase 107 U/L (46-116) Total Protein 7.1 g/dL (6.4-8.2) Albumin 3.0 g/dL (3.4-5.0) Albumin/Globulin Ratio 0.7 (1.0-1.7) Lipase 138 U/L (73-393) Urine Collection Type Unknown Urine Color Yellow Urine Clarity Cloudy Urine pH 7.5 Urine Specific [place] 1.020 Urine Protein Negative mg/dL (NEG-TRACE) Urine Glucose (UA) Negative mg/dL (NEG) Urine Ketones (Stick) 15 mg/dL (NEG) Urine Blood Negative (NEG) Urine Nitrite Negative (NEG) Urine Bilirubin Negative (NEG) Urine Urobilinogen Dipstick 1.0 mg/dL (0.2 mg/dL) Urine Leukocyte Esterase Negative (NEG) Urine RBC Occ /HPF (0-2) Urine WBC Occ /HPF (0-4) Urine Squamous Epithelial Cells Few /LPF Urine Amorphous Sediment Present /HPF Urine Bacteria Few /HPF (0-FEW) Urine Mucus Slight /LPF Assessment/Plan The patient is a very pleasant 27-year-old female with 2 day history of left flank and abdominal pain. Patient is 20 weeks . Patient states that she went to the emergency room on 06/02/17 with the complaint of left flank and abdominal pain and according to the patient imaging was negative for stone. Patient with no prior history of kidney stones. Patient had an ultrasound when she came to the emergency room on 06/03/17 here at [facility] and there was shown to be some mild left hydronephrosis and probable left proximal ureteral stone measuring 4 mm. Patient currently feeling much better. Patient with no major medical problems. Patient with no prior surgical history. Patient is and is 20 weeks . Patient normally is just on multivitamins. Patient with no known drug allergies. On physical examination patient with some mild left- sided flank discomfort and no right-sided abdominal pain. Patient's creatinine is normal and white count was 14,000 on admission. Patient is afebrile. Patient' s urine just showed an occasional red cell and occasional white cells and a few bacteria but was nitrite negative. I talked with the patient concerning her findings and we discussed the options alternatives benefits risks and possible complications of medical expulsive therapy versus surgical intervention. Patient would like to try medical expulsive therapy and therefore we'll go ahead and place her on Flomax if okay with Dr. Martinez. We'll also obtain a urine culture and place the patient on Rocephin if okay with Dr. Martinez. We'll continue to follow. ADOLFO WHELAN MD Jun 04, 2017 09:09
[2017-06-04] MEDS: TAMSULOSIN 0.4 MG CAP.ER.24H. PO SCH (10:41)
[2017-06-04 11:15] VITALS: BP 99/59
[2017-06-04 12:20] VITALS: BP 109/63
--- NOTE | 2017-06-04 13:23 | PDOC1 ---
OB - History Hx of Present Care: Limited Care Ultrasounds: No ultrasounds Obstetrical Complications: None Medical Complications: Other (kidney stone) Past Family/Social History * Past Medical, Surgical, Family and Obstetric Histories reviewed from chart. Blood Type: Unknown Rubella: Unknown RPR/VDRL: Unknown GBS Status: Unknown HBsAG: Unknown OB - Chief Complaint & HPI Date of Admission: Date of Admission: Jun 04, 2017 at 00:52 Chief Complaint/History : 1 Para: 0 EGA: 20 Reason for admission: other (Kidney stone) Admission Nurse Assessment Rev: Yes Problems: OB - Admission Exam Physical Exam Vitals: VS - Last 72 Hours, by Label Date Time Temp Pulse Resp B/P (MAP) Pulse Ox O2 Delivery O2 Flow Rate FiO2 06/04/17 05:29 98.2 88 18 88/44 (59) 97 Room Air 98.2 06/04/17 02:08 24 98 Room Air 06/04/17 02:00 98.2 85 20 115/64 (81) 96 Room Air 98.2 06/04/17 01:20 90 20 109/65 (80) 99 Room Air 06/04/17 00:43 20 06/03/17 23:35 80 20 113/54 (73) 96 Room Air 06/03/17 23:03 97.9 86 20 118/63 (81) 98 Room Air 97.9 HEENT: Normal Heart: Regular Rate Lungs: Clear Abdomen: Gravid, Non tender, Soft Extremities: Edema Reflexes: Normal Cervical Dilatation: None Effacement: 0% Station: Ballotable Membranes: Intact Accelerations: Accelerations Present Decelerations: No decelerations Contractions on Admission: None Text A: 20 wks IUP Left nephrolithiasis P: admit for IV fluid hydration and pain management. Appreciate consult from Urology. IV abx as well. REGINO GROVES Jr, MD Jun 04, 2017 13:23
[2017-06-04 16:20] VITALS: BP 117/77
[2017-06-04 21:30] VITALS: BP 103/61
[2017-06-05] MEDS: IV RINGERS,LACTATED 1000ML 1,000 ML IV SCH (04:26)
[2017-06-05] MEDS: HYDROcodone/APAP 5/325MG 1 TAB TABLET PO PRN (04:27)
[2017-06-05 04:40] VITALS: BP 94/58
[2017-06-05 06:50] LABS: CALCIUM 8.1 mg/dL (8.5-10.1); CREATININE 0.4 mg/dL (0.6-1.0); GFR 191.5; POTASSIUM 3.6 mmol/L (3.5-5.1)
[2017-06-05 06:57] LABS: BASO % 1 % (0-3); EOS % 1 % (0-3); HEMATOCRIT 28.8 % (36.0-47.0); HEMOGLOBIN 9.7 g/dL (12.0-15.5); LYMPH # 2.1 x10^3/uL (1.0-4.8); LYMPH % 27 % (24-48); MEAN CORPUSCULAR HEMOGLOBIN 32 pg (25-35); MEAN CORPUSCULAR HGB CONC 34 g/dL (31-37); MEAN CORPUSCULAR VOLUME 94 fL (79-100); MONO % 9 % (0-9); NEUT % 63 % (31-73); PLATELET COUNT 163 x10^3/uL (140-400); RED BLOOD COUNT 3.07 x10^6/uL (3.50-5.40); RED CELL DISTRIBUTION WIDTH 12.9 % (11.5-14.5); WHITE BLOOD COUNT 7.9 x10^3/uL (4.0-11.0)
[2017-06-05] MEDS: ONDANSETRON PF 4 MG/2 ML VIAL. IV SCH ×2 (08:18)
--- NOTE | 2017-06-05 08:30 | PDOC ---
PROGRESS NOTES Subjective Subjective Pt. feeling better today Objective Objective Vital Signs Date Time Temp Pulse Resp B/P (MAP) Pulse Ox O2 Delivery O2 Flow Rate FiO2 06/05/17 04:40 97.7 77 20 94/58 (70) 98 Room Air 97.7 Intake and Output 06/05/17 07:00 Intake Total 2000 ml Output Total 2650 ml Balance -650 ml Intake IV Total 2000 ml Output Urine Total 2650 ml Physical Exam Physical Exam mild dull ache in left flank Cr.-0.4 WBC-7.9 afeb Plan Plan of Care Pt. would like to do medical expulsive therapy Home on flomax and keflex Follow up with [facility] in 1-2 weeks Problems Medical Problems: (1) with hydronephrosis in second trimester Status: Acute (2) Ureteral colic Status: Acute Comment Review of Relevant I have reviewed the following items juan (where applicable) has been applied. Labs Laboratory Tests Test 06/03/17 23:10 06/04/17 00:23 06/05/17 06:22 White Blood Count 14.0 x10^3/uL (4.0-11.0) 7.9 x10^3/uL (4.0-11.0) Red Blood Count 3.51 x10^6/uL (3.50-5.40) 3.07 x10^6/uL (3.50-5.40) Hemoglobin 10.9 g/dL (12.0-15.5) 9.7 g/dL (12.0-15.5) Hematocrit 32.5 % (36.0-47.0) 28.8 % (36.0-47.0) Mean Corpuscular Volume 93 fL (79-100) 94 fL (79-100) Mean Corpuscular Hemoglobin 31 pg (25-35) 32 pg (25-35) Mean Corpuscular Hemoglobin Concent 33 g/dL (31-37) 34 g/dL (31-37) Red Cell Distribution Width 13.1 % (11.5-14.5) 12.9 % (11.5-14.5) Platelet Count 187 x10^3/uL (140-400) 163 x10^3/uL (140-400) Neutrophils (%) (Auto) 84 % (31-73) 63 % (31-73) Lymphocytes (%) (Auto) 10 % (24-48) 27 % (24-48) Monocytes (%) (Auto) 6 % (0-9) 9 % (0-9) Eosinophils (%) (Auto) 0 % (0-3) 1 % (0-3) Basophils (%) (Auto) 0 % (0-3) 1 % (0-3) Neutrophils # (Auto) 11.8 x10^3uL (1.8-7.7) 5.0 x10^3uL (1.8-7.7) Lymphocytes # (Auto) 1.3 x10^3/uL (1.0-4.8) 2.1 x10^3/uL (1.0-4.8) Monocytes # (Auto) 0.9 x10^3/uL (0.0-1.1) 0.7 x10^3/uL (0.0-1.1) Eosinophils # (Auto) 0.0 x10^3/uL (0.0-0.7) 0.1 x10^3/uL (0.0-0.7) Basophils # (Auto) 0.0 x10^3/uL (0.0-0.2) 0.0 x10^3/uL (0.0-0.2) Sodium Level 142 mmol/L (136-145) 141 mmol/L (136-145) Potassium Level 3.6 mmol/L (3.5-5.1) 3.6 mmol/L (3.5-5.1) Chloride Level 107 mmol/L (98-107) 107 mmol/L (98-107) Carbon Dioxide Level 22 mmol/L (21-32) 24 mmol/L (21-32) Anion Gap 13 (6-14) 10 (6-14) Blood Urea Nitrogen 6 mg/dL (7-20) 2 mg/dL (7-20) Creatinine 0.7 mg/dL (0.6-1.0) 0.4 mg/dL (0.6-1.0) Estimated GFR (Cockcroft-Gault) 100.4 191.5 BUN/Creatinine Ratio 9 (6-20) Glucose Level 103 mg/dL (70-99) 89 mg/dL (70-99) Calcium Level 8.4 mg/dL (8.5-10.1) 8.1 mg/dL (8.5-10.1) Total Bilirubin 0.3 mg/dL (0.2-1.0) Aspartate Amino Transf (AST/SGOT) 21 U/L (15-37) Alanine Aminotransferase (ALT/SGPT) 24 U/L (14-59) Alkaline Phosphatase 107 U/L (46-116) Total Protein 7.1 g/dL (6.4-8.2) Albumin 3.0 g/dL (3.4-5.0) Albumin/Globulin Ratio 0.7 (1.0-1.7) Lipase 138 U/L (73-393) Urine Collection Type Unknown Urine Color Yellow Urine Clarity Cloudy Urine pH 7.5 Urine Specific [place] 1.020 Urine Protein Negative mg/dL (NEG-TRACE) Urine Glucose (UA) Negative mg/dL (NEG) Urine Ketones (Stick) 15 mg/dL (NEG) Urine Blood Negative (NEG) Urine Nitrite Negative (NEG) Urine Bilirubin Negative (NEG) Urine Urobilinogen Dipstick 1.0 mg/dL (0.2 mg/dL) Urine Leukocyte Esterase Negative (NEG) Urine RBC Occ /HPF (0-2) Urine WBC Occ /HPF (0-4) Urine Squamous Epithelial Cells Few /LPF Urine Amorphous Sediment Present /HPF Urine Bacteria Few /HPF (0-FEW) Urine Mucus Slight /LPF Laboratory Tests Test 06/05/17 06:22 White Blood Count 7.9 x10^3/uL (4.0-11.0) Red Blood Count 3.07 x10^6/uL (3.50-5.40) Hemoglobin 9.7 g/dL (12.0-15.5) Hematocrit 28.8 % (36.0-47.0) Mean Corpuscular Volume 94 fL (79-100) Mean Corpuscular Hemoglobin 32 pg (25-35) Mean Corpuscular Hemoglobin Concent 34 g/dL (31-37) Red Cell Distribution Width 12.9 % (11.5-14.5) Platelet Count 163 x10^3/uL (140-400) Neutrophils (%) (Auto) 63 % (31-73) Lymphocytes (%) (Auto) 27 % (24-48) Monocytes (%) (Auto) 9 % (0-9) Eosinophils (%) (Auto) 1 % (0-3) Basophils (%) (Auto) 1 % (0-3) Neutrophils # (Auto) 5.0 x10^3uL (1.8-7.7) Lymphocytes # (Auto) 2.1 x10^3/uL (1.0-4.8) Monocytes # (Auto) 0.7 x10^3/uL (0.0-1.1) Eosinophils # (Auto) 0.1 x10^3/uL (0.0-0.7) Basophils # (Auto) 0.0 x10^3/uL (0.0-0.2) Sodium Level 141 mmol/L (136-145) Potassium Level 3.6 mmol/L (3.5-5.1) Chloride Level 107 mmol/L (98-107) Carbon Dioxide Level 24 mmol/L (21-32) Anion Gap 10 (6-14) Blood Urea Nitrogen 2 mg/dL (7-20) Creatinine 0.4 mg/dL (0.6-1.0) Estimated GFR (Cockcroft-Gault) 191.5 Glucose Level 89 mg/dL (70-99) Calcium Level 8.1 mg/dL (8.5-10.1) Medications Current Medications Sodium Chloride 1,000 ml @ 1,000 mls/hr 1X ONCE IV Last administered on 23:21; Start 06/03/17 at 23:30; Stop 06/04/17 at 00:29; Status DC Metoclopramide HCl (Reglan) 10 mg 1X ONCE IV Last administered on 06/03/17 23: 29; Start 06/03/17 at 23:30; Stop 06/03/17 at 23:31; Status DC Fentanyl Citrate (Fentanyl 2ml Vial) 50 mcg PRN Q15MIN PRN IV PAIN GREATER THAN 3/10 Last administered on 06/04/17 01:26; Start 06/03/17 at 23:15; Stop 06/04 at 23:14; Status DC Ringer's Solution 1,000 ml @ 175 mls/hr [id number] IV Last administered on 04:26; Start 06/04/17 at 01:15 Acetaminophen/ Hydrocodone Bitart (Lortab 5/325) 2 tab PRN Q6HRS PRN PO SEVERE PAIN Last administered on 06/05/17 04:27; Start 06/04/17 at 01:15 Ondansetron HCl (Zofran) 8 mg Q6HRS IV Last administered on 06/05/17 08:18; Start 06/04/17 at 01:15 Morphine Sulfate 5 mg PRN Q2HR PRN IV SEVERE PAIN Last administered on 02:08; Start 06/04/17 at 01:15 Ondansetron HCl (Zofran) 4 mg PRN Q8HRS PRN IV NAUSEA/VOMITING; Start 06/04/17 at 01:30; Stop 06/05/17 at 01:29; Status UNV Fentanyl Citrate (Fentanyl 2ml Vial) 50 mcg PRN Q1HR PRN IV PAIN; Start at 01:30; Stop 06/05/17 at 01:29; Status UNV Sodium Chloride 1,000 ml @ 125 mls/hr Q8H IV ; Start 06/04/17 at 01:27; Stop 06/05/17 at 01:26; Status DC Acetaminophen (Tylenol) 650 mg PRN Q4HRS PRN PO FEVER; Start 06/04/17 at 01:30; Stop 06/05/17 at 01:29; Status DC Ceftriaxone Sodium 1 gm/ Sodium Chloride 50 ml @ 100 mls/hr Q24H IV Last administered on 06/04/17 10:41; Start 06/04/17 at 09:00 Tamsulosin HCl (Flomax) 0.4 mg DAILY PO Last administered on 06/04/17 10:41; Start 06/04/17 at 09:00 Active Scripts Active Vitamins ( Vits W-Ca,Fe,Fa(<1MG)) 1 Each Tablet 1 Each PO DAILY Vitals/I & O Vital Sign - Last 24 Hours 06/04/17 06/04/17 06/04/17 06/04/17 11:15 12:20 16:20 21:30 Temp 98.0 98.3 97.5 98.0 98.3 97.5 Pulse 72 85 87 Resp 18 18 20 B/P (MAP) 99/59 (72) 109/63 (78) 117/77 (90) 103/61 (75) Pulse Ox 98 99 O2 Delivery Room Air Room Air Room Air 06/05/17 06/05/17 04:27 04:40 Temp 97.7 97.7 Pulse 77 Resp 20 B/P (MAP) 94/58 (70) Pulse Ox 99 98 O2 Delivery Room Air Intake and Output 06/04/17 06/04/17 06/05/17 15:00 23:00 07:00 Intake Total 1000 ml 1000 ml Output Total 1950 ml 700 ml Balance -950 ml 300 ml ADOLFO WHELAN MD Jun 05, 2017 08:30
[2017-06-05] MEDS: TAMSULOSIN 0.4 MG CAP.ER.24H. PO SCH (12:08)
--- NOTE | 2017-06-05 13:42 | DISCH ---
DISCHARGE INSTRUCTIONS Condition on Discharge Condition on Discharge: Stable Activity After Discharge Activity Instructions for Disc: Resume previous activity Lifting Instructions after Dis: No heavy lifting Driving Instructions after Dis: Do not drive today Diet after Discharge Diet after Discharge: Regular Contacting the [facility] after DC Call your doctor for: Concerns you may have Follow-Up Follow up with: Mihir in 2 weeks. REGINO GROVES Jr, MD Jun 05, 2017 13:42
--- NOTE | 2017-06-05 13:42 | PDOC ---
OB Progress Note Date of Service 06/05/17 Time of Evaluation 1340 Problem List Problems Medical Problems: (1) with hydronephrosis in second trimester Status: Acute (2) Ureteral colic Status: Acute Notes PT. feeling well. Pain resolved. Lab Laboratory Tests Test 06/03/17 23:10 06/04/17 00:23 06/05/17 06:22 White Blood Count 14.0 x10^3/uL (4.0-11.0) 7.9 x10^3/uL (4.0-11.0) Red Blood Count 3.51 x10^6/uL (3.50-5.40) 3.07 x10^6/uL (3.50-5.40) Hemoglobin 10.9 g/dL (12.0-15.5) 9.7 g/dL (12.0-15.5) Hematocrit 32.5 % (36.0-47.0) 28.8 % (36.0-47.0) Mean Corpuscular Volume 93 fL (79-100) 94 fL (79-100) Mean Corpuscular Hemoglobin 31 pg (25-35) 32 pg (25-35) Mean Corpuscular Hemoglobin Concent 33 g/dL (31-37) 34 g/dL (31-37) Red Cell Distribution Width 13.1 % (11.5-14.5) 12.9 % (11.5-14.5) Platelet Count 187 x10^3/uL (140-400) 163 x10^3/uL (140-400) Neutrophils (%) (Auto) 84 % (31-73) 63 % (31-73) Lymphocytes (%) (Auto) 10 % (24-48) 27 % (24-48) Monocytes (%) (Auto) 6 % (0-9) 9 % (0-9) Eosinophils (%) (Auto) 0 % (0-3) 1 % (0-3) Basophils (%) (Auto) 0 % (0-3) 1 % (0-3) Neutrophils # (Auto) 11.8 x10^3uL (1.8-7.7) 5.0 x10^3uL (1.8-7.7) Lymphocytes # (Auto) 1.3 x10^3/uL (1.0-4.8) 2.1 x10^3/uL (1.0-4.8) Monocytes # (Auto) 0.9 x10^3/uL (0.0-1.1) 0.7 x10^3/uL (0.0-1.1) Eosinophils # (Auto) 0.0 x10^3/uL (0.0-0.7) 0.1 x10^3/uL (0.0-0.7) Basophils # (Auto) 0.0 x10^3/uL (0.0-0.2) 0.0 x10^3/uL (0.0-0.2) Sodium Level 142 mmol/L (136-145) 141 mmol/L (136-145) Potassium Level 3.6 mmol/L (3.5-5.1) 3.6 mmol/L (3.5-5.1) Chloride Level 107 mmol/L (98-107) 107 mmol/L (98-107) Carbon Dioxide Level 22 mmol/L (21-32) 24 mmol/L (21-32) Anion Gap 13 (6-14) 10 (6-14) Blood Urea Nitrogen 6 mg/dL (7-20) 2 mg/dL (7-20) Creatinine 0.7 mg/dL (0.6-1.0) 0.4 mg/dL (0.6-1.0) Estimated GFR (Cockcroft-Gault) 100.4 191.5 BUN/Creatinine Ratio 9 (6-20) Glucose Level 103 mg/dL (70-99) 89 mg/dL (70-99) Calcium Level 8.4 mg/dL (8.5-10.1) 8.1 mg/dL (8.5-10.1) Total Bilirubin 0.3 mg/dL (0.2-1.0) Aspartate Amino Transf (AST/SGOT) 21 U/L (15-37) Alanine Aminotransferase (ALT/SGPT) 24 U/L (14-59) Alkaline Phosphatase 107 U/L (46-116) Total Protein 7.1 g/dL (6.4-8.2) Albumin 3.0 g/dL (3.4-5.0) Albumin/Globulin Ratio 0.7 (1.0-1.7) Lipase 138 U/L (73-393) Urine Collection Type Unknown Urine Color Yellow Urine Clarity Cloudy Urine pH 7.5 Urine Specific [place] 1.020 Urine Protein Negative mg/dL (NEG-TRACE) Urine Glucose (UA) Negative mg/dL (NEG) Urine Ketones (Stick) 15 mg/dL (NEG) Urine Blood Negative (NEG) Urine Nitrite Negative (NEG) Urine Bilirubin Negative (NEG) Urine Urobilinogen Dipstick 1.0 mg/dL (0.2 mg/dL) Urine Leukocyte Esterase Negative (NEG) Urine RBC Occ /HPF (0-2) Urine WBC Occ /HPF (0-4) Urine Squamous Epithelial Cells Few /LPF Urine Amorphous Sediment Present /HPF Urine Bacteria Few /HPF (0-FEW) Urine Mucus Slight /LPF Laboratory Tests Test 06/05/17 06:22 White Blood Count 7.9 x10^3/uL (4.0-11.0) Red Blood Count 3.07 x10^6/uL (3.50-5.40) Hemoglobin 9.7 g/dL (12.0-15.5) Hematocrit 28.8 % (36.0-47.0) Mean Corpuscular Volume 94 fL (79-100) Mean Corpuscular Hemoglobin 32 pg (25-35) Mean Corpuscular Hemoglobin Concent 34 g/dL (31-37) Red Cell Distribution Width 12.9 % (11.5-14.5) Platelet Count 163 x10^3/uL (140-400) Neutrophils (%) (Auto) 63 % (31-73) Lymphocytes (%) (Auto) 27 % (24-48) Monocytes (%) (Auto) 9 % (0-9) Eosinophils (%) (Auto) 1 % (0-3) Basophils (%) (Auto) 1 % (0-3) Neutrophils # (Auto) 5.0 x10^3uL (1.8-7.7) Lymphocytes # (Auto) 2.1 x10^3/uL (1.0-4.8) Monocytes # (Auto) 0.7 x10^3/uL (0.0-1.1) Eosinophils # (Auto) 0.1 x10^3/uL (0.0-0.7) Basophils # (Auto) 0.0 x10^3/uL (0.0-0.2) Sodium Level 141 mmol/L (136-145) Potassium Level 3.6 mmol/L (3.5-5.1) Chloride Level 107 mmol/L (98-107) Carbon Dioxide Level 24 mmol/L (21-32) Anion Gap 10 (6-14) Blood Urea Nitrogen 2 mg/dL (7-20) Creatinine 0.4 mg/dL (0.6-1.0) Estimated GFR (Cockcroft-Gault) 191.5 Glucose Level 89 mg/dL (70-99) Calcium Level 8.1 mg/dL (8.5-10.1) Medications Current Medications Sodium Chloride 1,000 ml @ 1,000 mls/hr 1X ONCE IV Last administered on 23:21; Start 06/03/17 at 23:30; Stop 06/04/17 at 00:29; Status DC Metoclopramide HCl (Reglan) 10 mg 1X ONCE IV Last administered on 06/03/17 23: 29; Start 06/03/17 at 23:30; Stop 06/03/17 at 23:31; Status DC Fentanyl Citrate (Fentanyl 2ml Vial) 50 mcg PRN Q15MIN PRN IV PAIN GREATER THAN 3/10 Last administered on 06/04/17 01:26; Start 06/03/17 at 23:15; Stop 06/04 at 23:14; Status DC Ringer's Solution 1,000 ml @ 175 mls/hr Q5H43M IV Last administered on 04:26; Start 06/04/17 at 01:15 Acetaminophen/ Hydrocodone Bitart (Lortab 5/325) 2 tab PRN Q6HRS PRN PO SEVERE PAIN Last administered on 06/05/17 04:27; Start 06/04/17 at 01:15 Ondansetron HCl (Zofran) 8 mg Q6HRS IV Last administered on 06/05/17 08:18; Start 06/04/17 at 01:15 Morphine Sulfate 5 mg PRN Q2HR PRN IV SEVERE PAIN Last administered on 02:08; Start 06/04/17 at 01:15 Ondansetron HCl (Zofran) 4 mg PRN Q8HRS PRN IV NAUSEA/VOMITING; Start 06/04/17 at 01:30; Stop 06/05/17 at 01:29; Status UNV Fentanyl Citrate (Fentanyl 2ml Vial) 50 mcg PRN Q1HR PRN IV PAIN; Start at 01:30; Stop 06/05/17 at 01:29; Status UNV Sodium Chloride 1,000 ml @ 125 mls/hr Q8H IV ; Start 06/04/17 at 01:27; Stop 06/05/17 at 01:26; Status DC Acetaminophen (Tylenol) 650 mg PRN Q4HRS PRN PO FEVER; Start 06/04/17 at 01:30; Stop 06/05/17 at 01:29; Status DC Ceftriaxone Sodium 1 gm/ Sodium Chloride 50 ml @ 100 mls/hr Q24H IV Last administered on 06/05/17 11:55; Start 06/04/17 at 09:00 Tamsulosin HCl (Flomax) 0.4 mg DAILY PO Last administered on 06/05/17 12:08; Start 06/04/17 at 09:00 Active Scripts Active Vitamins ( Vits W-Ca,Fe,Fa(<1MG)) 1 Each Tablet 1 Each PO DAILY Exam Abd: soft, non tender; no CVA tenderness. Assessment 20 wks IUP Nephrolithiasis Plan of Care: See new orders (D/c home.) REGINO GROVES Jr, MD Jun 05, 2017 13:42
[2017-06-05] MEDS ORDERED: OXYC-323 PO (13:43)
[2017-06-05 14:49] VITALS: BP 102/70
== END 2017-06-05 14:58 | disposition home or self-care (01) | DRG 781 ==
LOC: ER 22:59 → 3 NORTH 06-04 00:52
PROVIDERS: ADMIT Obstetrics & Gynecology; ATTEND Obstetrics & Gynecology
DX: O26.832 Pregnancy related renal disease, second trimester (principal); N13.2 Hydronephrosis with renal and ureteral calculous obstruction; K59.00 Constipation, unspecified; E66.9 Obesity, unspecified; O99.212 Obesity complicating pregnancy, second trimester; Z3A.20 20 weeks gestation of pregnancy; Z68.36 Body mass index [BMI] 36.0-36.9, adult
CPT/HCPCS: 36415; 76700; 80048; 80053; 81001; 83690; 85027; 87086; 96361; 96374; J0696; J2270; J2405; J2765; J3010; J7030; J7120; 99285-25